=== PATIENT | female | born 1990 | race American Indian/Alaskan Native ===

== ENCOUNTER 2017-01-25 14:23 | Emergency (ER) | payer MEDICAID, SELFPAY ==
[2017-01-25 14:59] LABS: #Basophils 0.1 thou/uL (0.0-0.2); #Eosinphils 0.1 thou/uL (0.0-0.7); #Lymphocytes 2.4 thou/uL (1.20-3.40); #Monocytes 0.7 thou/uL (0.11-0.59); %Basophils 0.8 % (0.0-1.0); %Eosinophils 1.6 % (0.0-10.0); %Lymphocytes 29.4 % (21.0-51.0); %Monocytes 8.2 % (0.0-10.0); Hemoglobin 13.2 g/dL (12.0-16.0); Mean Corpuscular Hemoglobin 29.2 pg (27.0-31.0); Mean Corpuscular Volume 88.4 fl (81.0-99.0); Mean Platelet Volume 7.9 fL (7.4-10.4); Platelet Count 248 thou/uL (130-400); RBC Distribution Width 13.5 % (11.5-14.5); Red Blood Cell (RBC) Count 4.51 mill/uL (4.20-5.40); White Blood Cell (WBC) Count 8.3 thou/uL (4.8-10.8)
[2017-01-25 16:48] LABS: Bilirubin Negative (Negative); Blood, Urine Negative (Negative); Clarity Clear (Clear); Glucose, Urine (Dipstick) Negative (Negative); Leukocyte Trace (Negative); Nitrite Negative (Negative); Protein, Urine (Dipstick) Negative (Neg-Trace); Urobilinogen 0.2 mg/dL (0.2-1.0); pH, Urine 6.5 (5.0-9.0)
[2017-01-25 16:51] LABS: Bacteria/HPF Rare-Few HPF (None Seen); RBC/HPF 0-3 HPF (0-3); Squamous Epithelial 0-3 HPF (0-3); WBC/HPF 0-3 HPF (0-3)
[2017-01-30 00:51] LABS: Chlamydia by PCR DETECTED (NotDetected); GC by PCR Not Detected (NotDetected)
== END 2017-01-25 17:19 | disposition home or self-care (01) ==
LOC: BURERS 14:23
DX: O20.0 Threatened abortion (principal); Z3A.01 Less than 8 weeks gestation of pregnancy
CPT/HCPCS: 81003; 81015; 84702; 85025; 87480; 87491; 87510; 87591; 87660; 99284

== ENCOUNTER 2017-03-08 08:20 | Emergency (ER) | payer MEDICAID, OTHER ==
[2017-03-08 08:57] LABS: #Basophils 0.1 thou/uL (0.0-0.2); #Eosinphils 0.1 thou/uL (0.0-0.7); #Lymphocytes 1.8 thou/uL (1.20-3.40); #Monocytes 0.9 thou/uL (0.11-0.59); #Neutrophils 12.5 thou/uL (1.40-6.50); %Basophils 0.5 % (0.0-1.0); %Eosinophils 0.5 % (0.0-10.0); %Lymphocytes 11.9 % (21.0-51.0); %Monocytes 5.6 % (0.0-10.0); %Neutrophils 81.6 % (42.0-75.0); Hemoglobin 13.1 g/dL (12.0-16.0); Mean Corpuscular HGB CONC 33.1 g/dL (32.0-36.0); Mean Corpuscular Hemoglobin 28.7 pg (27.0-31.0); Mean Corpuscular Volume 86.8 fl (81.0-99.0); Mean Platelet Volume 7.9 fL (7.4-10.4); Platelet Count 213 thou/uL (130-400); RBC Distribution Width 11.9 % (11.5-14.5); Red Blood Cell (RBC) Count 4.58 mill/uL (4.20-5.40); White Blood Cell (WBC) Count 15.3 thou/uL (4.8-10.8)
[2017-03-08 09:12] LABS: ALT (SGPT) 8 U/L (8-55); AST (SGOT) 9 U/L (5-34); Albumin 3.6 g/dL (3.5-5.0); Alkaline Phosphatase 102 U/L (40-150); Anion Gap 14 mmol/L (10-20); BUN (Urea Nitrogen) Less than 4 mg/dL (7.0-18.7); Bilirubin, Total 0.3 mg/dL (0.2-1.2); Calc. Creatinine Clearance 0 mL/min (70-130); Calcium 9.6 mg/dL (7.8-10.44); Carbon Dioxide 19 mmol/L (22-29); Chloride 107 mmol/L (98-107); Estimated GFR-MDRD Greater than 90; Globulin 3.7 g/dL (2.4-3.5); Glucose 106 mg/dL (70-105); Potassium 3.6 mmol/L (3.5-5.1); Protein, Total 7.3 g/dL (6.0-8.3); Sodium 136 mmol/L (136-145)
[2017-03-08 09:17] LABS: PTT 30.4 SEC (22.9-36.1); Prothrombin Time 13.7 SEC (12.0-14.7)
[2017-03-08] MEDS ORDERED: Morphine 4 MG/ML Carpuject ONE ×2 (09:24→11:19)
[2017-03-08 09:25] LABS: Bilirubin Small (Negative); Blood, Urine Negative (Negative); Clarity Slightly Cloudy (Clear); Glucose, Urine (Dipstick) Negative (Negative); Leukocyte Negative (Negative); Nitrite Negative (Negative); Protein, Urine (Dipstick) 30 mg/dL (Neg-Trace)
[2017-03-08 09:34] LABS: Bacteria/HPF 1+ HPF (None Seen); RBC/HPF None Seen HPF (0-3); WBC/HPF 0-3 HPF (0-3)
[2017-03-08 09:35] LABS: Other Microscopic Description LARGE MUCOUS STRANDS
[2017-03-08] MEDS ORDERED: Sterile Water 10 ML ONE (10:41)
[2017-03-08] MEDS ORDERED: cefTRIAXone\\ROCEPHIN 1 GM VIAL ONE (10:41)
--- NOTE | 2017-03-08 19:48 | ULT ---
LIMITED OB ULTRASOUND 03/08/17 Ultrasonography of the pelvis was performed for evaluation of pelvic pain. Multiple images were provi ded and worksheets were reviewed. A single viable intrauterine is present. It is mostly in a breech lie at the moment. The am ount of fluid around the fetus is normal. Normal activity was seen. The heart rate was 14 7 beats per minute by doppler measurements. No gross anatomical abnormalities were seen, however, a s can at a little later date in would be more revealing in this respect. The placenta is loca madi anteriorly. There was no sign of abruption or previa. The BPD was measured at 2.79 cm. The head circumference was 10.9 cm and abdominal circumference 9.2 c m. All of these findings are consistent with a 15 week IUP. IMPRESSION: 15 week viable intrauterine with no gross abnormalities of the fetus, fluid or placenta. Fo llowup ultrasound at a later stage of to see anatomy better would be in order. POS: HOME
[2017-03-11 11:18] LABS: Chlamydia by PCR Not Detected (NotDetected); GC by PCR Not Detected (NotDetected)
== END 2017-03-08 11:34 | disposition short-term general hospital (02) ==
LOC: BURERS 08:20
DX: O23.592 Infection of other part of genital tract in pregnancy, second trimester (principal); Z3A.15 15 weeks gestation of pregnancy
CPT/HCPCS: 36415; 51701; 76815; 80053; 81003; 81015; 84702; 85025; 85610; 85730; 86900; 86901; 87086; 87480; 87491; 87510; 87591; 87660; 94760; 96361; 96374; 96375; 96376; A4216; J0696; J2270

== ENCOUNTER 2017-05-19 18:45 | Emergency (ER) | payer OTHER, SELFPAY ==
[2017-05-19] MEDS ORDERED: predniSONE 20 MG TAB ONE (19:17)
== END 2017-05-19 19:25 | disposition home or self-care (01) ==
LOC: BURERS 18:45
DX: J06.9 Acute upper respiratory infection, unspecified (principal); F32.9 Major depressive disorder, single episode, unspecified; F17.210 Nicotine dependence, cigarettes, uncomplicated
CPT/HCPCS: 99284; J7506